=== PATIENT | female | born 1990 | race American Indian/Alaskan Native ===

== ENCOUNTER 2018-09-09 10:27 | Emergency (ER) | payer OTHER ==
[2018-09-09 10:35] VITALS: BP 124/80
[2018-09-09] MEDS ORDERED: TORADOL IM ONE (11:15)
[2018-09-09] MEDS ORDERED: FLEXERIL PO ONE (11:15)
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
== END 2018-09-09 11:47 | disposition home or self-care (01) ==
LOC: ED 10:27
DX: M54.5 Low back pain (principal); M62.830 Muscle spasm of back; F17.200 Nicotine dependence, unspecified, uncomplicated
CPT/HCPCS: 96372; 99283; J1885